=== PATIENT | male | born 1995 | race African-American/Black ===

== ENCOUNTER 2017-01-28 09:14 | Emergency (ER) | payer OTHER ==
[~2017-01-28] VITALS: Ht 193 cm; Wt 117.9 kg
[2017-01-28] MEDS ORDERED: MOBIC15 MG PO (09:34)
[2017-01-28] MEDS ORDERED: LIORESAL 10 MG10 MG PO (09:34)
[2017-01-28 10:38] VITALS: BP 141/93
== END 2017-01-28 10:39 | disposition home or self-care (01) ==
LOC: ER 09:14
DX: S39.012A Strain of muscle, fascia and tendon of lower back, initial encounter (principal); S16.1XXA Strain of muscle, fascia and tendon at neck level, initial encounter; F10.99 Alcohol use, unspecified with unspecified alcohol-induced disorder; V89.2XXA Person injured in unspecified motor-vehicle accident, traffic, initial encounter; Y93.89 Activity, other specified; Y92.89 Other specified places as the place of occurrence of the external cause; Y99.8 Other external cause status